=== PATIENT | female | born 1945 | race Caucasian/White ===

== ENCOUNTER 2020-11-20 18:38 | Emergency (ER) | payer MEDICARE ==
[~2020-11-20] VITALS: Ht 165.1 cm; Wt 75.4 kg
[~2020-11-20 18:38] MED LIST: WARF-23 PO
[2020-11-20] MEDS ORDERED: LISI40TA4 (18:54)
--- NOTE | 2020-11-20 20:08 | REP ---
INDICATION: fall/pain. COMPARISON: None TECHNIQUE: Four views FINDINGS: There is no acute fracture, dislocation, subluxation, or joint effusion. There is radial head marginal osteophytosis and joint space narrowing consistent with degenerative changes. IMPRESSION: . Chronic changes <Electronically signed by Viktor Cain > 11/20/202003
--- NOTE | 2020-11-20 20:12 | REP ---
INDICATION: fall/pain. COMPARISON: The frontal view the chest is compared to the portable exam 09/08/2014 TECHNIQUE: Five views FINDINGS: The bones are demineralized to such a degree that a fracture cannot be ruled. The 7th rib might be fractured. Accompanying frontal view of the chest shows chronic fibrotic changes, global cardiomegaly, previous median sternotomy, and a single chamber bipolar pacemaker device. IMPRESSION: Possible rib fracture as described above. Other findings as described above. Consider CT <Electronically signed by Viktor Cain > 11/20/202008
--- NOTE | 2020-11-20 20:13 | REP ---
INDICATION: fall/pain. COMPARISON: None. TECHNIQUE: Three views of the right shoulder were performed. FINDINGS: The acromioclavicular and glenohumeral relationships are within normal limits. There is no acute fracture or destructive osseous lesion. IMPRESSION: Within normal limits for age <Electronically signed by Viktor Cain > 11/20/202008
[2020-11-20 21:01] VITALS: BP 188/87
== END 2020-11-20 21:13 | disposition home or self-care (01) ==
LOC: M ED 18:38
DX: S22.31XA Fracture of one rib, right side, initial encounter for closed fracture (principal); M25.511 Pain in right shoulder; W01.0XXA Fall on same level from slipping, tripping and stumbling without subsequent striking against object, initial encounter; Y92.9 Unspecified place or not applicable; Y93.9 Activity, unspecified; Y99.9 Unspecified external cause status; Z95.0 Presence of cardiac pacemaker; Z88.1 Allergy status to other antibiotic agents; Z88.6 Allergy status to analgesic agent; Z88.8 Allergy status to other drugs, medicaments and biological substances

== ENCOUNTER → 2020-12-25 | Outpatient (CLI) | payer MEDICARE ==
[~2020-12-25] MED LIST changes: +LISI40TA4
--- NOTE | 2020-12-25 16:55 | REP ---
INDICATION: SPONDYLOSIS CERVICAL REGION / RT ELBOW PAIN ? FX. COMPARISON: Previous plain film examination 11/20/2020 reviewed. That examination showed no evidence of an acute fracture. Degenerative changes were noted. TECHNIQUE: 2 mm increments and reconstructed in both sagittal and coronal planes FINDINGS: There is a transverse supracondylar distal humeral fracture. It is nondisplaced. The elbow joint is intact. Degenerative changes are seen with marginal osteophyte formation involving the ulna and radial head. IMPRESSION: Transverse nondisplaced supracondylar fracture of the distal humerus as described above <Electronically signed by Viktor Cain > 12/25/20 [id number]
--- NOTE | 2020-12-25 17:35 | REPVR ---
PROCEDURE INFORMATION: Exam: CT Cervical Spine Without Contrast Exam date and time: 12/25/2020 4:35 PM Age: 75 years old Clinical indication: Other: Spondylosis; Additional info: Spondylosis cervical region / RT elbow pain ? FX TECHNIQUE: Imaging protocol: Computed tomography images of the cervical spine without contrast. Axial, coronal and sagittal reformatted images were created and reviewed. Radiation optimization: All CT scans at this facility use at least one of these dose optimization techniques: automated exposure control; mA and/or kV adjustment per patient size (includes targeted exams where dose is matched to clinical indication); or iterative reconstruction. COMPARISON: CT ANGIO CHEST 09/09/2014 2:00 AM FINDINGS: Bones/joints: Osteopenia. Mild reversal of the normal cervical lordosis. No CT evidence of acute fracture, dislocation or subluxation. Minimal anterolisthesis of C2 on C3 and C3 on C4. Mild retrolisthesis of C4 on C5. Alignment otherwise anatomic. Mild levoscoliosis. Vertebral body heights maintained. Discs/Spinal canal/Neural foramina: Mild multilevel degenerative changes, characterized by disc space narrowing, osteophytosis and uncovertebral and facet joint hypertrophy. Mild multilevel spinal canal and neural foraminal narrowing. Lungs: Grossly unremarkable. Soft tissues: Grossly unremarkable. IMPRESSION: 1. No CT evidence of acute cervical spine traumatic injury. 2. Additional findings, as above. Electronically signed by: Anastacio Ulloa On 12/25/2020 17:34:48 PM
== END ==
LOC: M RAD 16:26
PROVIDERS: ATTEND Physician Assistant
DX: S42.214A Unspecified nondisplaced fracture of surgical neck of right humerus, initial encounter for closed fracture (principal); M47.892 Other spondylosis, cervical region; M85.88 Other specified disorders of bone density and structure, other site; X58.XXXA Exposure to other specified factors, initial encounter; Y92.9 Unspecified place or not applicable; Y99.9 Unspecified external cause status

== ENCOUNTER → 2022-08-14 | Outpatient (CLI) | payer MEDICARE ==
[2022-08-14 10:16] LABS: HEMATOCRIT 38.2 % (36.0-47.0); HEMOGLOBIN 12.6 g/dl (12.0-15.5); MEAN CORPUSCULAR HEMOGLOBIN 28.7 pg (27.0-33.0); PLATELET COUNT, AUTOMATED 158 10^3/uL (150-450); RED BLOOD COUNT 4.39 10^6/uL (4.00-5.40); WHITE BLOOD COUNT 4.4 10^3/uL (4.0-10.0)
[2022-08-14 11:00] LABS: ALBUMIN 3.8 G/DL (3.2-5.2); ALKALINE PHOSPHATASE 94 U/L (46-116); ALT/SGPT 17 U/L (7.0-40); AST/SGOT 22 U/L (<34); BILIRUBIN,TOTAL 3.2 MG/DL (0.3-1.2); BLOOD UREA NITROGEN 19 MG/DL (9-23); CALCIUM LEVEL 8.8 MG/DL (8.3-10.6); CARBON DIOXIDE LEVEL 27 MMOL/L (20-31); CHLORIDE LEVEL 102 MMOL/L (98-107); CHOLESTEROL LEVEL 177 MG/DL (<200); CHOLESTEROL RISK RATIO 3.25 (<5); CREATININE FOR GFR 0.78 MG/DL (0.55-1.30); GLOMERULAR FILTRATION RATE > 60.0 (>39); GLUCOSE, FASTING 100 MG/DL (74-106); HDL CHOLESTEROL 54.3 MG/DL (>40); LDL CHOLESTEROL 107.1 MG/DL (<100); MAGNESIUM LEVEL 1.9 MG/DL (1.8-2.4); NON-HDL-C 123 MG/DL; POTASSIUM SERUM 4.2 MMOL/L (3.5-5.1); SODIUM LEVEL 137 MMOL/L (136-145); TOTAL PROTEIN 7.2 G/DL (5.7-8.2); TRIGLYCERIDES LEVEL 78 MG/DL (<150)
== END ==
LOC: M LAB 09:22
PROVIDERS: ATTEND Physician Assistant
DX: I50.42 Chronic combined systolic (congestive) and diastolic (congestive) heart failure (principal); I48.21 Permanent atrial fibrillation; Z13.220 Encounter for screening for lipoid disorders

== ENCOUNTER 2023-08-14 17:04 | Inpatient (IN) | payer MEDICARE ==
[~2023-08-14] VITALS: Ht 165.1 cm; Wt 71.0 kg
[2023-08-14] VITALS (17 sets, daily range): BP systolic 110–149; BP diastolic 51–70; TEMP 95.9–97; O2SAT 95–100
[~2023-08-14 17:04] MED LIST changes: -LISI40TA4; +LISI40TA4 PO
[2023-08-14] MEDS ORDERED: MIDAZOLAM 5MG/ML 1ML VIAL As Ordered ONE (17:07)
[2023-08-14] MEDS ORDERED: NOREPINEPHRINE 4MG IN D5 250ML 4 MG in IV 1 EA IV SCH ×2 (17:10→19:25)
[2023-08-14] MEDS: MIDAZOLAM INJ 2MG/2ML VIAL IV ONE (17:15)
[2023-08-14 17:26] LABS: ABG BASE EXCESS -6.1 (-2.0-2.0); ABG HCO3 19.8 MMOL/L (22.0-26.0); ABG O2 SATURATION 95.8 % (95.0-99.0); ABG PARTIAL PRESSURE CO2 40.5 mmHg (35.0-45.0); ABG PARTIAL PRESSURE O2 88.7 mmHg (75.0-100.0); ABG STANDARD HCO3 19.5 MMOL/L. (22.0-26.0); ABG pH (ARTERIAL) 7.307 UNITS (7.350-7.450)
[2023-08-14] MEDS: AMIODARONE HCL 360 MG in IV 1 EA IV SCH ×2 (17:35→22:34)
[2023-08-14] MEDS: HYDROCORTISONE 100MG/2ML VIAL IV ONE (17:35)
[2023-08-14 17:41] LABS: BASO # 0.1 10^3/uL (0.0-0.2); BASO % 0.3 % (0.0-1.0); EOS % 0.2 % (0.0-3.0); HEMATOCRIT 37.2 % (36.0-47.0); HEMOGLOBIN 12.4 g/dl (12.0-15.5); LYMPH # 3.2 10^3/uL (1.5-5.0); LYMPH % 17.7 % (24.0-44.0); MEAN CORPUSCULAR HEMOGLOBIN 28.9 pg (27.0-33.0); MEAN CORPUSCULAR HGB CONC 33.3 g/dl (32.0-36.5); MEAN CORPUSCULAR VOLUME 86.7 fl (80.0-96.0); MONO # 0.6 10^3/uL (0.0-0.8); MONO % 3.2 % (2.0-8.0); NEUTROPHILS # 13.9 10^3/uL (1.5-8.5); NEUTROPHILS % 76.2 % (36.0-66.0); PLATELET COUNT, AUTOMATED 163 10^3/uL (150-450); RED BLOOD COUNT 4.29 10^6/uL (4.00-5.40); WHITE BLOOD COUNT 18.2 10^3/uL (4.0-10.0)
[2023-08-14 17:54] LABS: INR 1.42; PROTHROMBIN TIME 16.9 SECONDS (12.5-14.5)
[2023-08-14] MEDS ORDERED: BUME0.5T2 PO (17:54)
[2023-08-14] MEDS ORDERED: ELIQ5TAB PO (17:54)
[2023-08-14 17:55] LABS: PARTIAL THROMBOPLASTIN TIME 33.8 SECONDS (24.8-34.2)
[2023-08-14] MEDS ORDERED: HOME MED LIST COMPLETE! XX SCH (17:55)
[2023-08-14] MEDS: MIDAZOLAM 100MG/100ML-0.9%NACL 100 MG in IV 1 EA IV SCH ×2 (17:57→21:15)
[2023-08-14] MEDS: NS 1,000 ML IV ONE ×2 (17:59→19:18)
[2023-08-14 18:08] LABS: CK-MB VALUE MASS < 1.0 NG/ML (<3.6)
[2023-08-14 18:10] LABS: AMYLASE 53 U/L (30-118)
[2023-08-14 18:11] LABS: RSV AMPLIFICATION NEGATIVE (NEGATIVE)
[2023-08-14 18:12] LABS: THYROID STIMULATING HORMONE 4.805 uIU/ML (0.55-4.78)
[2023-08-14] MEDS: CEFEPIME HCL 1 GM in D5W MINI-BAG PLUS 50 ML IV ONE (18:12)
[2023-08-14 18:13] LABS: FREE T4 0.84 NG/DL (0.89-1.76)
[2023-08-14 18:16] LABS: PROCALCITONIN <0.04 ng/ml
[2023-08-14] MEDS: levETIRAcetam INJection 1,000 MG in D5W 100 ML IV ONE (18:24)
[2023-08-14 18:26] LABS: ALBUMIN 2.8 G/DL (3.2-5.2); ALKALINE PHOSPHATASE 88 U/L (46-116); ALT/SGPT 130 U/L (7.0-40); AST/SGOT 147 U/L (<34); BILIRUBIN,DIRECT 0.6 MG/DL (<0.4); BILIRUBIN,TOTAL 1.5 MG/DL (0.3-1.2); BLOOD UREA NITROGEN 15 MG/DL (9-23); CALCIUM LEVEL 7.4 MG/DL (8.3-10.6); CARBON DIOXIDE LEVEL 22 MMOL/L (20-31); CHLORIDE LEVEL 104 MMOL/L (98-107); CPK CREATINE PHOSPHOKINASE 96 U/L (34-145); CREATININE FOR GFR 0.74 MG/DL (0.55-1.30); GLOMERULAR FILTRATION RATE > 60.0 (>39); GLUCOSE, FASTING 288 MG/DL (74-106); MB/CK RELATIVE INDEX 1.04 (< OR =4); POTASSIUM SERUM 2.8 MMOL/L (3.5-5.1); SODIUM LEVEL 140 MMOL/L (136-145); TOTAL PROTEIN 6.2 G/DL (5.7-8.2)
[2023-08-14 18:38] LABS: LIPASE 40 U/L (12-53)
[2023-08-14 18:40] LABS: MAGNESIUM LEVEL 1.7 MG/DL (1.8-2.4); PHOSPHORUS LEVEL 5.3 MG/DL (2.4-5.1)
[2023-08-14] MEDS ORDERED: OSELTAMIVIR 6 MG/ML SUSP PO ONE (18:45)
[2023-08-14 18:49] LABS: AMORPHOUS SEDIMENT SMALL (NEGATIVE); APPEARANCE, URINE CLOUDY (CLEAR); BACTERIA, URINE AUTO NEGATIVE (NEGATIVE); BILIRUBIN, URINE AUTO NEGATIVE (NEGATIVE); BLOOD, URINE BLOOD 1+ (NEGATIVE); COLOR, URINE YELLOW (YELLOW); GLUCOSE, URINE (UA) AUTO 3+ mg/dL (NEGATIVE); GRANULAR CAST, URINE AUTO 2 /LPF; KETONE, URINE AUTO NEGATIVE (NEGATIVE); LEUKOCYTE ESTERASE, URINE AUTO NEGATIVE (NEGATIVE); MUCUS, URINE SMALL (NEGATIVE); NITRITE, URINE AUTO NEGATIVE (NEGATIVE); PROTEIN, URINE AUTO 3+ mg/dL (NEGATIVE); RBC, URINE AUTO 10 /HPF (0-3); SPECIFIC GRAVITY URINE AUTO 1.014 (1.002-1.035); SQUAMOUS EPITHELIAL CELL UR AU 3 /HPF (0-6); UROBILINOGEN, URINE AUTO 0.2 mg/dL (0.0-2.0); WBC, URINE AUTO 0 /HPF (0-3)
[2023-08-14] MEDS: MAG SULF 1GM/100ML (MAG RUN) 1 GM in IV 1 EA IV ONE (18:57)
[2023-08-14] MEDS: CALCIUM GLUCONATE 1,000 MG in D5W MINI-BAG PLUS 100 ML IV ONE (18:57)
[2023-08-14] MEDS: VANCOMYCIN HCL 1,000 MG, VIAL MATE ADAPTER 1 EACH in D5W 250 ML IV ONE (18:57)
[2023-08-14 19:08] LABS: AMPHETAMINES LEVEL URINE NEGATIVE (NEGATIVE)
[2023-08-14 19:09] LABS: BARBITURATES URINE NEGATIVE (NEGATIVE); CANNABINOIDS URINE NEGATIVE (NEGATIVE); COCAINE METABOLITE URINE NEGATIVE (NEGATIVE); METHADONE URINE NEGATIVE (NEGATIVE); OPIATES URINE NEGATIVE (NEGATIVE); PHENCYCLIDINE URINE NEGATIVE (NEGATIVE)
[2023-08-14 19:11] LABS: BENZODIAZEPINES URINE POSITIVE (NEGATIVE)
[2023-08-14] MEDS: KCL 20MEQ IN 100ML SWI (KRUN) 20 MEQ in IV 1 EA IV SCH (19:18)
[2023-08-14] MEDS ORDERED: DEXTROSE 50% 50ML SYRINGE IV PRN (19:25)
[2023-08-14] MEDS ORDERED: GLUCOSE 4GM CHEW TABLET PO PRN (19:25)
[2023-08-14] MEDS ORDERED: GLUCAGON INJ 1MG VIAL SC PRN (19:25)
[2023-08-14] MEDS: ACETAMINOPHEN 650MG SUPP PR ONE (19:25)
[2023-08-14 19:29] LABS: MB/CK RELATIVE INDEX 2.73 (< OR =4)
[2023-08-14] MEDS ORDERED: VANCOMYCIN HCL 1,000 MG, VIAL MATE ADAPTER 1 EACH in D5W 250 ML IV SCH (19:40)
[2023-08-14 19:56] LABS: ABG BASE EXCESS -2.5 (-2.0-2.0); ABG HCO3 21.8 MMOL/L (22.0-26.0); ABG O2 SATURATION 98.9 % (95.0-99.0); ABG PARTIAL PRESSURE CO2 35.9 mmHg (35.0-45.0); ABG PARTIAL PRESSURE O2 177.9 mmHg (75.0-100.0); ABG STANDARD HCO3 22.4 MMOL/L. (22.0-26.0); ABG TOTAL CO2 22.9 MMOL/L (23.0-31.0); ABG pH (ARTERIAL) 7.402 UNITS (7.350-7.450)
[2023-08-14] MEDS: LACRILUBE (AKWA TEARS) OPHTH OINT 3.5GM OU SCH (21:00)
[2023-08-14] MEDS: NS 1,000 ML IV SCH (21:18)
[2023-08-14 21:23] LABS: ABG BASE EXCESS -0.9 (-2.0-2.0); ABG HCO3 24.1 MMOL/L (22.0-26.0); ABG O2 SATURATION 98.7 % (95.0-99.0); ABG PARTIAL PRESSURE CO2 41.4 mmHg (35.0-45.0); ABG PARTIAL PRESSURE O2 133.4 mmHg (75.0-100.0); ABG STANDARD HCO3 23.7 MMOL/L. (22.0-26.0); ABG TOTAL CO2 25.4 MMOL/L (23.0-31.0); ABG pH (ARTERIAL) 7.383 UNITS (7.350-7.450)
[2023-08-14 21:26] LABS: BASO % 0.1 % (0.0-1.0); HEMATOCRIT 32.8 % (36.0-47.0); LYMPH # 0.4 10^3/uL (1.5-5.0); LYMPH % 2.6 % (24.0-44.0); MEAN CORPUSCULAR HEMOGLOBIN 28.9 pg (27.0-33.0); MEAN CORPUSCULAR HGB CONC 33.5 g/dl (32.0-36.5); MEAN CORPUSCULAR VOLUME 86.1 fl (80.0-96.0); MONO # 0.9 10^3/uL (0.0-0.8); MONO % 5.6 % (2.0-8.0); NEUTROPHILS # 13.8 10^3/uL (1.5-8.5); PLATELET COUNT, AUTOMATED 124 10^3/uL (150-450); RED BLOOD COUNT 3.81 10^6/uL (4.00-5.40); WHITE BLOOD COUNT 15.1 10^3/uL (4.0-10.0)
[2023-08-14 21:39] LABS: INR 1.47; PROTHROMBIN TIME 17.3 SECONDS (12.5-14.5)
[2023-08-14 21:40] LABS: PARTIAL THROMBOPLASTIN TIME 34.7 SECONDS (24.8-34.2)
[2023-08-14 21:44] LABS: LIPASE 32 U/L (12-53)
[2023-08-14 21:46] LABS: AMYLASE 40 U/L (30-118); CPK CREATINE PHOSPHOKINASE 188 U/L (34-145)
[2023-08-14 21:49] LABS: D-DIMER QUANT 13.68 ug/mL (<0.5)
[2023-08-14 21:52] LABS: ALBUMIN 2.5 G/DL (3.2-5.2); ALKALINE PHOSPHATASE 81 U/L (46-116); ALT/SGPT 113 U/L (7.0-40); AST/SGOT 137 U/L (<34); BILIRUBIN,TOTAL 1.8 MG/DL (0.3-1.2); BLOOD UREA NITROGEN 14 MG/DL (9-23); CALCIUM LEVEL 7.3 MG/DL (8.3-10.6); CARBON DIOXIDE LEVEL 26 MMOL/L (20-31); CHLORIDE LEVEL 102 MMOL/L (98-107); CK-MB VALUE MASS 8.1 NG/ML (<3.6); GLOMERULAR FILTRATION RATE > 60.0 (>39); GLUCOSE, FASTING 372 MG/DL (74-106); MAGNESIUM LEVEL 1.8 MG/DL (1.8-2.4); PHOSPHORUS LEVEL 2.2 MG/DL (2.4-5.1); POTASSIUM SERUM 2.9 MMOL/L (3.5-5.1); SODIUM LEVEL 134 MMOL/L (136-145); TOTAL PROTEIN 5.6 G/DL (5.7-8.2)
[2023-08-14] MEDS: KCL 10MEQ/100ML SWI (KRUN) 10 MEQ in IV 1 EA IV SCH (22:41)
[2023-08-14] MEDS ORDERED: ACETAMINOPHEN 650MG SUPP PR PRN (23:00)
[2023-08-14] MEDS ORDERED: AMIODARONE HCL 360 MG in IV 1 EA IV SCH (23:00)
[2023-08-15] VITALS (57 sets, daily range): BP systolic 93–173; BP diastolic 53–85; TEMP 91.8–98.4; O2SAT 91–100
[2023-08-15] MEDS ORDERED: diphenhydrAMINE 25MG CAP PO SCH
[2023-08-15] MEDS: FAMOTIDINE IV BAG 20 MG in IV 1 EA IV SCH (00:13)
[2023-08-15] MEDS: POTASSIUM PHOSPHATE INJ 15 MMOL in D5W 250 ML IV ONE (00:13)
[2023-08-15] MEDS: OSELTAMIVIR 6 MG/ML SUSP PO SCH (00:13)
[2023-08-15] MEDS: methylPREDNISolone 125MG 2ML VIAL IV ONE (00:13)
[2023-08-15] MEDS: AMIODARONE HCL 360 MG in IV 1 EA IV SCH ×2 (00:21→19:50)
[2023-08-15] MEDS: INSULIN LISPRO (NovoLOG) PER UNIT SC SCH (00:22)
[2023-08-15] MEDS: diphenhydrAMINE 50MG/ML VIAL IV PRN (00:22)
[2023-08-15 00:32] LABS: HEMATOCRIT 34.5 % (36.0-47.0); HEMOGLOBIN 11.6 g/dl (12.0-15.5); MEAN CORPUSCULAR HEMOGLOBIN 28.8 pg (27.0-33.0); MEAN CORPUSCULAR HGB CONC 33.6 g/dl (32.0-36.5); MEAN CORPUSCULAR VOLUME 85.6 fl (80.0-96.0); PLATELET COUNT, AUTOMATED 136 10^3/uL (150-450); RED BLOOD COUNT 4.03 10^6/uL (4.00-5.40); WHITE BLOOD COUNT 15.5 10^3/uL (4.0-10.0)
[2023-08-15 00:42] LABS: INR 1.37; PROTHROMBIN TIME 16.5 SECONDS (12.5-14.5)
[2023-08-15 00:43] LABS: PARTIAL THROMBOPLASTIN TIME 35.4 SECONDS (24.8-34.2)
[2023-08-15] MEDS: CISATRACURIUM 200 MG in NS 480 ML IV SCH (00:49)
[2023-08-15 00:54] LABS: ALBUMIN 2.7 G/DL (3.2-5.2); ALKALINE PHOSPHATASE 82 U/L (46-116); ALT/SGPT 118 U/L (7.0-40); AST/SGOT 136 U/L (<34); BILIRUBIN,TOTAL 1.8 MG/DL (0.3-1.2); BLOOD UREA NITROGEN 15 MG/DL (9-23); CALCIUM LEVEL 7.5 MG/DL (8.3-10.6); CARBON DIOXIDE LEVEL 24 MMOL/L (20-31); CHLORIDE LEVEL 105 MMOL/L (98-107); CREATININE FOR GFR 0.69 MG/DL (0.55-1.30); GLOMERULAR FILTRATION RATE > 60.0 (>39); GLUCOSE, FASTING 319 MG/DL (74-106); MAGNESIUM LEVEL 1.8 MG/DL (1.8-2.4); PHOSPHORUS LEVEL 1.9 MG/DL (2.4-5.1); POTASSIUM SERUM 3.3 MMOL/L (3.5-5.1); SODIUM LEVEL 136 MMOL/L (136-145); TOTAL PROTEIN 5.9 G/DL (5.7-8.2)
[2023-08-15] MEDS: CISATRACURIUM 10MG/ML 20 ML VIAL IV ONE (01:11)
[2023-08-15] MEDS: VANCOMYCIN HCL 500 MG in D5W MINI-BAG PLUS 100 ML IV ONE (01:30)
[2023-08-15 01:36] LABS: ABG pH (ARTERIAL) 7.369 UNITS (7.350-7.450)
[2023-08-15 01:37] LABS: ABG BASE EXCESS -3.2 (-2.0-2.0); ABG HCO3 21.7 MMOL/L (22.0-26.0); ABG O2 SATURATION 98.9 % (95.0-99.0); ABG PARTIAL PRESSURE CO2 38.5 mmHg (35.0-45.0); ABG PARTIAL PRESSURE O2 136.8 mmHg (75.0-100.0); ABG STANDARD HCO3 21.9 MMOL/L. (22.0-26.0); ABG TOTAL CO2 22.9 MMOL/L (23.0-31.0)
[2023-08-15] MEDS ORDERED: dexmedeTOMidine 200 MCG in IV 1 EA IV SCH (01:50)
[2023-08-15] MEDS: ASPIRIN 300 MG SUPP PR SCH (01:53)
[2023-08-15 04:25] LABS: HEMATOCRIT 39.4 % (36.0-47.0); HEMOGLOBIN 13.1 g/dl (12.0-15.5); MEAN CORPUSCULAR HEMOGLOBIN 28.7 pg (27.0-33.0); MEAN CORPUSCULAR HGB CONC 33.2 g/dl (32.0-36.5); MEAN CORPUSCULAR VOLUME 86.4 fl (80.0-96.0); PLATELET COUNT, AUTOMATED 184 10^3/uL (150-450); RED BLOOD COUNT 4.56 10^6/uL (4.00-5.40); WHITE BLOOD COUNT 18.4 10^3/uL (4.0-10.0)
[2023-08-15 04:37] LABS: INR 1.36; PROTHROMBIN TIME 16.4 SECONDS (12.5-14.5)
[2023-08-15 04:38] LABS: PARTIAL THROMBOPLASTIN TIME 34.5 SECONDS (24.8-34.2)
[2023-08-15 04:51] LABS: ALBUMIN 2.6 G/DL (3.2-5.2); ALKALINE PHOSPHATASE 83 U/L (46-116); ALT/SGPT 114 U/L (7.0-40); AST/SGOT 114 U/L (<34); BILIRUBIN,TOTAL 1.8 MG/DL (0.3-1.2); BLOOD UREA NITROGEN 15 MG/DL (9-23); CALCIUM LEVEL 7.2 MG/DL (8.3-10.6); CARBON DIOXIDE LEVEL 22 MMOL/L (20-31); CHLORIDE LEVEL 104 MMOL/L (98-107); CREATININE FOR GFR 0.65 MG/DL (0.55-1.30); GLOMERULAR FILTRATION RATE > 60.0 (>39); GLUCOSE, FASTING 373 MG/DL (74-106); MAGNESIUM LEVEL 1.8 MG/DL (1.8-2.4); POTASSIUM SERUM 3.8 MMOL/L (3.5-5.1); SODIUM LEVEL 133 MMOL/L (136-145)
[2023-08-15] MEDS: CEFEPIME HCL 2 GM in D5W MINI-BAG PLUS 50 ML IV SCH ×2 (05:31→13:00)
[2023-08-15] MEDS: methylPREDNISolone 40MG 1ML VIAL IV SCH (05:32)
[2023-08-15 05:52] LABS: ABG BASE EXCESS -5.7 (-2.0-2.0); ABG HCO3 18.7 MMOL/L (22.0-26.0); ABG O2 SATURATION 98.8 % (95.0-99.0); ABG PARTIAL PRESSURE CO2 33.5 mmHg (35.0-45.0); ABG STANDARD HCO3 19.8 MMOL/L. (22.0-26.0); ABG TOTAL CO2 19.7 MMOL/L (23.0-31.0); ABG pH (ARTERIAL) 7.364 UNITS (7.350-7.450)
[2023-08-15 08:44] LABS: HEMATOCRIT 40.9 % (36.0-47.0); HEMOGLOBIN 13.7 g/dl (12.0-15.5); MEAN CORPUSCULAR HEMOGLOBIN 28.7 pg (27.0-33.0); MEAN CORPUSCULAR HGB CONC 33.5 g/dl (32.0-36.5); MEAN CORPUSCULAR VOLUME 85.7 fl (80.0-96.0); PLATELET COUNT, AUTOMATED 197 10^3/uL (150-450); RED BLOOD COUNT 4.77 10^6/uL (4.00-5.40); WHITE BLOOD COUNT 17.2 10^3/uL (4.0-10.0)
[2023-08-15] MEDS ORDERED: OSELTAMIVIR 6 MG/ML SUSP PO SCH (09:00)
[2023-08-15 09:02] LABS: ALBUMIN 2.9 G/DL (3.2-5.2); ALKALINE PHOSPHATASE 82 U/L (46-116); ALT/SGPT 108 U/L (7.0-40); AST/SGOT 94 U/L (<34); BILIRUBIN,TOTAL 1.3 MG/DL (0.3-1.2); BLOOD UREA NITROGEN 13 MG/DL (9-23); CALCIUM LEVEL 7.6 MG/DL (8.3-10.6); CARBON DIOXIDE LEVEL 22 MMOL/L (20-31); CHLORIDE LEVEL 105 MMOL/L (98-107); GLOMERULAR FILTRATION RATE > 60.0 (>39); GLUCOSE, FASTING 270 MG/DL (74-106); MAGNESIUM LEVEL 1.8 MG/DL (1.8-2.4); PHOSPHORUS LEVEL 2.8 MG/DL (2.4-5.1); POTASSIUM SERUM 3.5 MMOL/L (3.5-5.1); SODIUM LEVEL 134 MMOL/L (136-145); TOTAL PROTEIN 6.6 G/DL (5.7-8.2)
[2023-08-15 09:12] LABS: INR 1.31; PARTIAL THROMBOPLASTIN TIME 32.4 SECONDS (24.8-34.2); PROTHROMBIN TIME 15.9 SECONDS (12.5-14.5)
[2023-08-15] MEDS: NS 1,000 ML IV SCH (09:23)
[2023-08-15] MEDS: PANTOPRAZOLE 40MG VIAL IV SCH (09:23)
[2023-08-15] MEDS: levETIRAcetam INJection 1,000 MG in D5W 100 ML IV SCH (09:24)
[2023-08-15] MEDS: VANCOMYCIN HCL 750 MG, VIAL MATE ADAPTER 1 EACH in D5W 250 ML IV SCH (09:31)
[2023-08-15 10:39] LABS: ABG BASE EXCESS -7.6 (-2.0-2.0); ABG HCO3 17.8 MMOL/L (22.0-26.0); ABG O2 SATURATION 99.4 % (95.0-99.0); ABG PARTIAL PRESSURE CO2 35.9 mmHg (35.0-45.0); ABG PARTIAL PRESSURE O2 173.4 mmHg (75.0-100.0); ABG STANDARD HCO3 18.4 MMOL/L. (22.0-26.0); ABG TOTAL CO2 18.9 MMOL/L (23.0-31.0); ABG pH (ARTERIAL) 7.312 UNITS (7.350-7.450)
[2023-08-15 12:06] LABS: HEMATOCRIT 37.3 % (36.0-47.0); HEMOGLOBIN 12.6 g/dl (12.0-15.5); MEAN CORPUSCULAR HEMOGLOBIN 28.8 pg (27.0-33.0); MEAN CORPUSCULAR HGB CONC 33.8 g/dl (32.0-36.5); MEAN CORPUSCULAR VOLUME 85.4 fl (80.0-96.0); PLATELET COUNT, AUTOMATED 147 10^3/uL (150-450); RED BLOOD COUNT 4.37 10^6/uL (4.00-5.40); WHITE BLOOD COUNT 10.8 10^3/uL (4.0-10.0)
[2023-08-15 12:27] LABS: INR 1.38; PROTHROMBIN TIME 16.5 SECONDS (12.5-14.5)
[2023-08-15 12:28] LABS: PARTIAL THROMBOPLASTIN TIME 33.2 SECONDS (24.8-34.2)
[2023-08-15 12:44] LABS: ALBUMIN 2.6 G/DL (3.2-5.2); ALKALINE PHOSPHATASE 75 U/L (46-116); ALT/SGPT 94 U/L (7.0-40); AST/SGOT 74 U/L (<34); BILIRUBIN,TOTAL 1.2 MG/DL (0.3-1.2); BLOOD UREA NITROGEN 13 MG/DL (9-23); CALCIUM LEVEL 7.3 MG/DL (8.3-10.6); CARBON DIOXIDE LEVEL 22 MMOL/L (20-31); CHLORIDE LEVEL 105 MMOL/L (98-107); GLOMERULAR FILTRATION RATE > 60.0 (>39); GLUCOSE, FASTING 298 MG/DL (74-106); MAGNESIUM LEVEL 1.7 MG/DL (1.8-2.4); PHOSPHORUS LEVEL 3.1 MG/DL (2.4-5.1); POTASSIUM SERUM 3.3 MMOL/L (3.5-5.1); SODIUM LEVEL 133 MMOL/L (136-145)
[2023-08-15] MEDS: POTASSIUM CHLORIDE 10MEQ SR TABLET PO ONE (13:40)
[2023-08-15] MEDS: MAG SULF 1GM/100ML (MAG RUN) 1 GM in IV 1 EA IV ONE (13:57)
[2023-08-15] MEDS: APIXABAN 5 MG TAB (ELIQUIS) PO SCH (14:12)
[2023-08-15] MEDS ORDERED: MIDAZOLAM INJ 2MG/2ML VIAL As Ordered ONE (14:46)
[2023-08-15] MEDS: KCL 20MEQ IN 100ML SWI (KRUN) 20 MEQ in IV 1 EA IV ONE (14:50)
[2023-08-15 14:58] LABS: ABG HCO3 16.5 MMOL/L (22.0-26.0); ABG TOTAL CO2 17.3 MMOL/L (23.0-31.0)
[2023-08-15 15:00] LABS: ABG BASE EXCESS -6.1 (-2.0-2.0); ABG O2 SATURATION 99.2 % (95.0-99.0); ABG PARTIAL PRESSURE CO2 25.6 mmHg (35.0-45.0); ABG PARTIAL PRESSURE O2 148.1 mmHg (75.0-100.0); ABG STANDARD HCO3 19.5 MMOL/L. (22.0-26.0); ABG pH (ARTERIAL) 7.426 UNITS (7.350-7.450)
[2023-08-15] MEDS: MIDAZOLAM INJ 2MG/2ML VIAL IV STA (15:01)
[2023-08-15 16:36] LABS: HEMATOCRIT 42.4 % (36.0-47.0); HEMOGLOBIN 14.1 g/dl (12.0-15.5); MEAN CORPUSCULAR HEMOGLOBIN 28.6 pg (27.0-33.0); MEAN CORPUSCULAR HGB CONC 33.3 g/dl (32.0-36.5); PLATELET COUNT, AUTOMATED 226 10^3/uL (150-450); RED BLOOD COUNT 4.93 10^6/uL (4.00-5.40); WHITE BLOOD COUNT 18.3 10^3/uL (4.0-10.0)
[2023-08-15 16:47] LABS: INR 1.72; PROTHROMBIN TIME 19.5 SECONDS (12.5-14.5)
[2023-08-15] MEDS ORDERED: propofoL 1,000 MG in IV 1 EA IV SCH (16:50)
[2023-08-15 17:03] LABS: ALBUMIN 2.8 G/DL (3.2-5.2); ALKALINE PHOSPHATASE 81 U/L (46-116); ALT/SGPT 95 U/L (7.0-40); AST/SGOT 72 U/L (<34); BILIRUBIN,TOTAL 1.3 MG/DL (0.3-1.2); BLOOD UREA NITROGEN 12 MG/DL (9-23); CARBON DIOXIDE LEVEL 19 MMOL/L (20-31); CHLORIDE LEVEL 104 MMOL/L (98-107); CREATININE FOR GFR 0.54 MG/DL (0.55-1.30); GLOMERULAR FILTRATION RATE > 60.0 (>39); GLUCOSE, FASTING 238 MG/DL (74-106); MAGNESIUM LEVEL 2.2 MG/DL (1.8-2.4); PHOSPHORUS LEVEL 2.6 MG/DL (2.4-5.1); POTASSIUM SERUM 4.7 MMOL/L (3.5-5.1); SODIUM LEVEL 130 MMOL/L (136-145); TOTAL PROTEIN 6.5 G/DL (5.7-8.2)
[2023-08-15 18:31] LABS: ABG BASE EXCESS -7.1 (-2.0-2.0); ABG HCO3 16.5 MMOL/L (22.0-26.0); ABG O2 SATURATION 98.5 % (95.0-99.0); ABG PARTIAL PRESSURE CO2 28.5 mmHg (35.0-45.0); ABG PARTIAL PRESSURE O2 136.4 mmHg (75.0-100.0); ABG STANDARD HCO3 18.7 MMOL/L. (22.0-26.0); ABG TOTAL CO2 17.4 MMOL/L (23.0-31.0); ABG pH (ARTERIAL) 7.381 UNITS (7.350-7.450)
[2023-08-15 20:18] LABS: HEMOGLOBIN 11.7 g/dl (12.0-15.5); MEAN CORPUSCULAR HEMOGLOBIN 28.9 pg (27.0-33.0); MEAN CORPUSCULAR HGB CONC 34.4 g/dl (32.0-36.5); PLATELET COUNT, AUTOMATED 155 10^3/uL (150-450); RED BLOOD COUNT 4.05 10^6/uL (4.00-5.40); WHITE BLOOD COUNT 12.7 10^3/uL (4.0-10.0)
[2023-08-15 20:32] LABS: INR 1.61; PARTIAL THROMBOPLASTIN TIME 35.1 SECONDS (24.8-34.2); PROTHROMBIN TIME 18.6 SECONDS (12.5-14.5)
[2023-08-15 20:49] LABS: ALBUMIN 2.1 G/DL (3.2-5.2); ALKALINE PHOSPHATASE 68 U/L (46-116); ALT/SGPT 84 U/L (7.0-40); AST/SGOT 56 U/L (<34); BILIRUBIN,TOTAL 1.1 MG/DL (0.3-1.2); BLOOD UREA NITROGEN 16 MG/DL (9-23); CALCIUM LEVEL 7.4 MG/DL (8.3-10.6); CARBON DIOXIDE LEVEL 22 MMOL/L (20-31); CHLORIDE LEVEL 106 MMOL/L (98-107); CREATININE FOR GFR 0.66 MG/DL (0.55-1.30); GLOMERULAR FILTRATION RATE > 60.0 (>39); GLUCOSE, FASTING 179 MG/DL (74-106); MAGNESIUM LEVEL 1.8 MG/DL (1.8-2.4); PHOSPHORUS LEVEL 2.4 MG/DL (2.4-5.1); SODIUM LEVEL 133 MMOL/L (136-145); TOTAL PROTEIN 5.2 G/DL (5.7-8.2)
[2023-08-15 23:48] LABS: ABG BASE EXCESS -5.4 (-2.0-2.0); ABG PARTIAL PRESSURE CO2 25.2 mmHg (35.0-45.0); ABG PARTIAL PRESSURE O2 160.5 mmHg (75.0-100.0); ABG TOTAL CO2 17.8 MMOL/L (23.0-31.0); ABG pH (ARTERIAL) 7.447 UNITS (7.350-7.450)
[2023-08-16] VITALS (30 sets, daily range): BP systolic 92–147; BP diastolic 56–70; TEMP 98.2–99.7; O2SAT 94–100
[2023-08-16 00:03] LABS: INR 1.71; PROTHROMBIN TIME 19.5 SECONDS (12.5-14.5)
[2023-08-16 00:06] LABS: HEMATOCRIT 34.6 % (36.0-47.0); HEMOGLOBIN 11.7 g/dl (12.0-15.5); MEAN CORPUSCULAR HEMOGLOBIN 28.8 pg (27.0-33.0); MEAN CORPUSCULAR HGB CONC 33.8 g/dl (32.0-36.5); MEAN CORPUSCULAR VOLUME 85.2 fl (80.0-96.0); PLATELET COUNT, AUTOMATED 162 10^3/uL (150-450); RED BLOOD COUNT 4.06 10^6/uL (4.00-5.40); WHITE BLOOD COUNT 13.3 10^3/uL (4.0-10.0)
[2023-08-16 00:19] LABS: ALBUMIN 2.1 G/DL (3.2-5.2); ALKALINE PHOSPHATASE 66 U/L (46-116); ALT/SGPT 78 U/L (7.0-40); AST/SGOT 52 U/L (<34); BILIRUBIN,TOTAL 1.1 MG/DL (0.3-1.2); BLOOD UREA NITROGEN 16 MG/DL (9-23); CALCIUM LEVEL 7.2 MG/DL (8.3-10.6); CARBON DIOXIDE LEVEL 21 MMOL/L (20-31); CHLORIDE LEVEL 107 MMOL/L (98-107); CREATININE FOR GFR 0.65 MG/DL (0.55-1.30); GLOMERULAR FILTRATION RATE > 60.0 (>39); GLUCOSE, FASTING 141 MG/DL (74-106); MAGNESIUM LEVEL 1.7 MG/DL (1.8-2.4); PHOSPHORUS LEVEL 2.2 MG/DL (2.4-5.1); POTASSIUM SERUM 3.7 MMOL/L (3.5-5.1); SODIUM LEVEL 133 MMOL/L (136-145); TOTAL PROTEIN 5.2 G/DL (5.7-8.2)
[2023-08-16] MEDS: MAG SULF 1GM/100ML (MAG RUN) 1 GM in IV 1 EA IV SCH (00:45)
[2023-08-16 03:24] LABS: HEMATOCRIT 32.5 % (36.0-47.0); HEMOGLOBIN 11.2 g/dl (12.0-15.5); MEAN CORPUSCULAR HEMOGLOBIN 28.9 pg (27.0-33.0); MEAN CORPUSCULAR HGB CONC 34.5 g/dl (32.0-36.5); PLATELET COUNT, AUTOMATED 154 10^3/uL (150-450); RED BLOOD COUNT 3.87 10^6/uL (4.00-5.40); WHITE BLOOD COUNT 13.7 10^3/uL (4.0-10.0)
[2023-08-16 03:36] LABS: INR 1.76; PROTHROMBIN TIME 19.9 SECONDS (12.5-14.5)
[2023-08-16 03:37] LABS: PARTIAL THROMBOPLASTIN TIME 36.2 SECONDS (24.8-34.2)
[2023-08-16 03:46] LABS: ALBUMIN 2.2 G/DL (3.2-5.2); ALKALINE PHOSPHATASE 64 U/L (46-116); ALT/SGPT 68 U/L (7.0-40); AST/SGOT 48 U/L (<34); BLOOD UREA NITROGEN 14 MG/DL (9-23); CALCIUM LEVEL 7.5 MG/DL (8.3-10.6); CARBON DIOXIDE LEVEL 20 MMOL/L (20-31); CHLORIDE LEVEL 105 MMOL/L (98-107); CREATININE FOR GFR 0.69 MG/DL (0.55-1.30); GLOMERULAR FILTRATION RATE > 60.0 (>39); GLUCOSE, FASTING 130 MG/DL (74-106); MAGNESIUM LEVEL 2.5 MG/DL (1.8-2.4); PHOSPHORUS LEVEL 2.4 MG/DL (2.4-5.1); POTASSIUM SERUM 3.7 MMOL/L (3.5-5.1); SODIUM LEVEL 131 MMOL/L (136-145)
[2023-08-16 04:34] LABS: ABG pH (ARTERIAL) 7.442 UNITS (7.350-7.450)
[2023-08-16 04:35] LABS: ABG BASE EXCESS -4.9 (-2.0-2.0); ABG HCO3 17.9 MMOL/L (22.0-26.0); ABG O2 SATURATION 99.1 % (95.0-99.0); ABG PARTIAL PRESSURE CO2 26.8 mmHg (35.0-45.0); ABG PARTIAL PRESSURE O2 172.9 mmHg (75.0-100.0); ABG STANDARD HCO3 20.5 MMOL/L. (22.0-26.0); ABG TOTAL CO2 18.7 MMOL/L (23.0-31.0)
[2023-08-16 05:43] LABS: BASO % 0.1 % (0.0-1.0); HEMATOCRIT 32.7 % (36.0-47.0); HEMOGLOBIN 11.5 g/dl (12.0-15.5); LYMPH # 0.9 10^3/uL (1.5-5.0); LYMPH % 6.2 % (24.0-44.0); MEAN CORPUSCULAR HEMOGLOBIN 29.4 pg (27.0-33.0); MEAN CORPUSCULAR HGB CONC 35.2 g/dl (32.0-36.5); MEAN CORPUSCULAR VOLUME 83.6 fl (80.0-96.0); MONO # 0.5 10^3/uL (0.0-0.8); MONO % 3.4 % (2.0-8.0); NEUTROPHILS # 13.2 10^3/uL (1.5-8.5); NEUTROPHILS % 89.7 % (36.0-66.0); PLATELET COUNT, AUTOMATED 171 10^3/uL (150-450); RED BLOOD COUNT 3.91 10^6/uL (4.00-5.40); WHITE BLOOD COUNT 14.7 10^3/uL (4.0-10.0)
[2023-08-16 05:59] LABS: INR 1.66; PROTHROMBIN TIME 19.1 SECONDS (12.5-14.5)
[2023-08-16 06:13] LABS: CK-MB VALUE MASS 5.3 NG/ML (<3.6)
[2023-08-16 06:16] LABS: ALBUMIN 2.1 G/DL (3.2-5.2); ALKALINE PHOSPHATASE 65 U/L (46-116); ALT/SGPT 69 U/L (7.0-40); AST/SGOT 50 U/L (<34); BLOOD UREA NITROGEN 15 MG/DL (9-23); CALCIUM LEVEL 7.3 MG/DL (8.3-10.6); CARBON DIOXIDE LEVEL 20 MMOL/L (20-31); CHLORIDE LEVEL 107 MMOL/L (98-107); CREATININE FOR GFR 0.73 MG/DL (0.55-1.30); GLOMERULAR FILTRATION RATE > 60.0 (>39); GLUCOSE, FASTING 113 MG/DL (74-106); MAGNESIUM LEVEL 2.1 MG/DL (1.8-2.4); PHOSPHORUS LEVEL 2.7 MG/DL (2.4-5.1); SODIUM LEVEL 133 MMOL/L (136-145)
[2023-08-16 06:20] LABS: CPK CREATINE PHOSPHOKINASE 136 U/L (34-145); MB/CK RELATIVE INDEX 3.89 (< OR =4)
[2023-08-16 08:26] LABS: HEMOGLOBIN 11.6 g/dl (12.0-15.5); MEAN CORPUSCULAR HEMOGLOBIN 28.9 pg (27.0-33.0); MEAN CORPUSCULAR HGB CONC 34.1 g/dl (32.0-36.5); MEAN CORPUSCULAR VOLUME 84.8 fl (80.0-96.0); PLATELET COUNT, AUTOMATED 170 10^3/uL (150-450); RED BLOOD COUNT 4.01 10^6/uL (4.00-5.40); WHITE BLOOD COUNT 14.8 10^3/uL (4.0-10.0)
[2023-08-16 08:56] LABS: INR 1.71; PROTHROMBIN TIME 19.5 SECONDS (12.5-14.5)
[2023-08-16 08:58] LABS: ALBUMIN 2.4 G/DL (3.2-5.2); ALKALINE PHOSPHATASE 63 U/L (46-116); ALT/SGPT 63 U/L (7.0-40); AST/SGOT 47 U/L (<34); BILIRUBIN,TOTAL 1.1 MG/DL (0.3-1.2); BLOOD UREA NITROGEN 13 MG/DL (9-23); CALCIUM LEVEL 7.5 MG/DL (8.3-10.6); CARBON DIOXIDE LEVEL 20 MMOL/L (20-31); CHLORIDE LEVEL 105 MMOL/L (98-107); CREATININE FOR GFR 0.75 MG/DL (0.55-1.30); GLOMERULAR FILTRATION RATE > 60.0 (>39); GLUCOSE, FASTING 125 MG/DL (74-106); MAGNESIUM LEVEL 2.2 MG/DL (1.8-2.4); PHOSPHORUS LEVEL 2.4 MG/DL (2.4-5.1); SODIUM LEVEL 130 MMOL/L (136-145); TOTAL PROTEIN 5.4 G/DL (5.7-8.2)
[2023-08-16] MEDS: cefTRIAXone SOD 2 GM in D5W MINI-BAG PLUS 50 ML IV SCH (13:06)
[2023-08-16] MEDS: AMIODARONE HCL 360 MG in IV 1 EA IV SCH (16:39)
[2023-08-17] VITALS (33 sets, daily range): BP systolic 121–172; BP diastolic 59–77; TEMP 99–99.7; O2SAT 95–100
[2023-08-17] MEDS: diphenhydrAMINE 50MG/ML VIAL IV STA (01:28)
[2023-08-17 04:04] LABS: BASO % 0.1 % (0.0-1.0); HEMATOCRIT 34.2 % (36.0-47.0); HEMOGLOBIN 11.8 g/dl (12.0-15.5); LYMPH # 0.6 10^3/uL (1.5-5.0); LYMPH % 2.9 % (24.0-44.0); MEAN CORPUSCULAR HEMOGLOBIN 28.9 pg (27.0-33.0); MEAN CORPUSCULAR HGB CONC 34.5 g/dl (32.0-36.5); MEAN CORPUSCULAR VOLUME 83.8 fl (80.0-96.0); MONO # 1.3 10^3/uL (0.0-0.8); MONO % 6.2 % (2.0-8.0); RED BLOOD COUNT 4.08 10^6/uL (4.00-5.40)
[2023-08-17 04:10] LABS: PLATELET COUNT, AUTOMATED 285 10^3/uL (150-450)
[2023-08-17 04:16] LABS: INR 1.58; PROTHROMBIN TIME 18.3 SECONDS (12.5-14.5)
[2023-08-17 04:34] LABS: BARBITURATES URINE NEGATIVE (NEGATIVE)
[2023-08-17 04:35] LABS: AMPHETAMINES LEVEL URINE NEGATIVE (NEGATIVE); BENZODIAZEPINES URINE POSITIVE (NEGATIVE); CANNABINOIDS URINE NEGATIVE (NEGATIVE); COCAINE METABOLITE URINE NEGATIVE (NEGATIVE); METHADONE URINE NEGATIVE (NEGATIVE); OPIATES URINE NEGATIVE (NEGATIVE); PHENCYCLIDINE URINE NEGATIVE (NEGATIVE)
[2023-08-17 04:36] LABS: CK-MB VALUE MASS 1.5 NG/ML (<3.6)
[2023-08-17 04:38] LABS: MB/CK RELATIVE INDEX 1.5 (< OR =4)
[2023-08-17 04:47] LABS: ALBUMIN 2.3 G/DL (3.2-5.2); BILIRUBIN,TOTAL 0.8 MG/DL (0.3-1.2); CALCIUM LEVEL 7.7 MG/DL (8.3-10.6); CREATININE FOR GFR 1.1 MG/DL (0.55-1.30); GLOMERULAR FILTRATION RATE 51.4 (>39); TOTAL PROTEIN 5.5 G/DL (5.7-8.2)
[2023-08-17 05:56] LABS: ABG BASE EXCESS -5.4 (-2.0-2.0); ABG O2 SATURATION 98.5 % (95.0-99.0); ABG PARTIAL PRESSURE CO2 24.9 mmHg (35.0-45.0); ABG PARTIAL PRESSURE O2 134.5 mmHg (75.0-100.0); ABG STANDARD HCO3 20.1 MMOL/L. (22.0-26.0); ABG TOTAL CO2 17.8 MMOL/L (23.0-31.0); ABG pH (ARTERIAL) 7.452 UNITS (7.350-7.450)
[2023-08-17] MEDS ORDERED: methylPREDNISolone 40MG 1ML VIAL IV SCH (09:00)
[2023-08-17] MEDS: AMIODARONE 100MG TABLET (PACERONE) PO SCH (09:34)
[2023-08-17] MEDS: LACRILUBE (AKWA TEARS) OPHTH OINT 3.5GM OU PRN (09:35)
[2023-08-17] MEDS: FUROSEMIDE 40MG/4ML VIAL IV SCH (13:38)
[2023-08-17] MEDS: ONDANSETRON 4MG 2ML VIAL IV ONE (22:36)
[2023-08-18] VITALS (32 sets, daily range): BP systolic 147–180; BP diastolic 66–77; TEMP 99.2–99.9; O2SAT 93–97
[2023-08-18 04:38] LABS: BASO % 0.1 % (0.0-1.0); HEMATOCRIT 34.2 % (36.0-47.0); HEMOGLOBIN 11.8 g/dl (12.0-15.5); LYMPH # 0.7 10^3/uL (1.5-5.0); LYMPH % 4.2 % (24.0-44.0); MEAN CORPUSCULAR HGB CONC 34.5 g/dl (32.0-36.5); MONO # 1.2 10^3/uL (0.0-0.8); MONO % 6.9 % (2.0-8.0); NEUTROPHILS # 14.8 10^3/uL (1.5-8.5); NEUTROPHILS % 87.5 % (36.0-66.0); PLATELET COUNT, AUTOMATED 288 10^3/uL (150-450); RED BLOOD COUNT 4.07 10^6/uL (4.00-5.40); WHITE BLOOD COUNT 16.9 10^3/uL (4.0-10.0)
[2023-08-18 04:49] LABS: AMPHETAMINES LEVEL URINE NEGATIVE (NEGATIVE); BARBITURATES URINE NEGATIVE (NEGATIVE); CANNABINOIDS URINE NEGATIVE (NEGATIVE); COCAINE METABOLITE URINE NEGATIVE (NEGATIVE); METHADONE URINE NEGATIVE (NEGATIVE); OPIATES URINE NEGATIVE (NEGATIVE); PHENCYCLIDINE URINE NEGATIVE (NEGATIVE)
[2023-08-18 04:53] LABS: BENZODIAZEPINES URINE POSITIVE (NEGATIVE)
[2023-08-18 04:54] LABS: INR 1.65
[2023-08-18 05:01] LABS: ALBUMIN 2.6 G/DL (3.2-5.2); BILIRUBIN,TOTAL 1.2 MG/DL (0.3-1.2); CALCIUM LEVEL 7.9 MG/DL (8.3-10.6); CREATININE FOR GFR 1.26 MG/DL (0.55-1.30); POTASSIUM SERUM 3.8 MMOL/L (3.5-5.1); TOTAL PROTEIN 5.9 G/DL (5.7-8.2)
[2023-08-18 05:55] LABS: ABG BASE EXCESS -3.8 (-2.0-2.0); ABG HCO3 19.3 MMOL/L (22.0-26.0); ABG O2 SATURATION 96.2 % (95.0-99.0); ABG PARTIAL PRESSURE CO2 29.4 mmHg (35.0-45.0); ABG PARTIAL PRESSURE O2 82.6 mmHg (75.0-100.0); ABG STANDARD HCO3 21.3 MMOL/L. (22.0-26.0); ABG TOTAL CO2 20.2 MMOL/L (23.0-31.0); ABG pH (ARTERIAL) 7.435 UNITS (7.350-7.450)
[2023-08-18] MEDS: ASPIRIN 325 MG TAB PO SCH (09:52)
[2023-08-18] MEDS: OMEGA-3 1000MG CAPSULE PO SCH (20:30)
[2023-08-19] VITALS (24 sets, daily range): BP systolic 132–192; BP diastolic 60–99; TEMP 99.3–100.4; O2SAT 93–100
[2023-08-19 04:44] LABS: BASO % 0.1 % (0.0-1.0); HEMATOCRIT 32.7 % (36.0-47.0); HEMOGLOBIN 11.3 g/dl (12.0-15.5); LYMPH # 0.7 10^3/uL (1.5-5.0); LYMPH % 4.5 % (24.0-44.0); MEAN CORPUSCULAR HEMOGLOBIN 28.8 pg (27.0-33.0); MEAN CORPUSCULAR HGB CONC 34.6 g/dl (32.0-36.5); MEAN CORPUSCULAR VOLUME 83.2 fl (80.0-96.0); MONO # 0.9 10^3/uL (0.0-0.8); MONO % 6.1 % (2.0-8.0); NEUTROPHILS # 13.3 10^3/uL (1.5-8.5); NEUTROPHILS % 87.7 % (36.0-66.0); PLATELET COUNT, AUTOMATED 275 10^3/uL (150-450); RED BLOOD COUNT 3.93 10^6/uL (4.00-5.40); WHITE BLOOD COUNT 15.1 10^3/uL (4.0-10.0)
[2023-08-19 04:56] LABS: INR 1.8; PROTHROMBIN TIME 20.3 SECONDS (12.5-14.5)
[2023-08-19 05:15] LABS: ALBUMIN 2.6 G/DL (3.2-5.2); BILIRUBIN,TOTAL 1.4 MG/DL (0.3-1.2); CALCIUM LEVEL 8.1 MG/DL (8.3-10.6); CREATININE FOR GFR 1.23 MG/DL (0.55-1.30); GLOMERULAR FILTRATION RATE 45.2 (>39); PHOSPHORUS LEVEL 3.8 MG/DL (2.4-5.1); POTASSIUM SERUM 3.6 MMOL/L (3.5-5.1); TOTAL PROTEIN 5.8 G/DL (5.7-8.2)
[2023-08-19] MEDS: hydrALAZINE 20MG/ML 1ML VIAL IV PRN (09:38)
[2023-08-19] MEDS ORDERED: LORazepam 2 MG/ML 1ML VIAL IV PRN (18:20)
[2023-08-19] MEDS ORDERED: ONDANSETRON 4MG 2ML VIAL IV PRN (18:20)
[2023-08-19] MEDS: SCOPOLAMINE 1MG TRANSDERMAL PATCH TOP PRN (18:56)
[2023-08-19] MEDS: MORPHINE 2 MG/ML 1ML VIAL IV PRN (18:57)
[2023-08-20] MEDS: MORPHINE 10MG/0.5ML ORAL CONCENTRATE SOLUTION U/D SL PRN (13:21)
[2023-08-20] MEDS: LORazepam 1 MG TAB PO PRN (18:19)
[2023-08-21] MEDS: LORazepam 2 MG/ML 1ML VIAL IV PRN (04:38)
[2023-08-21] MEDS: LORazepam 1 MG TAB PO PRN (09:54)
== END 2023-08-22 11:33 | disposition expired | DRG 871 ==
LOC: M ED 17:04 → M ED INP 19:24 → ENRESERV 19:37 → M ICU 20:01 → M MSPAV 08-19 20:44
PROVIDERS: ADMIT Internal Medicine; ATTEND Family Medicine
PROC: 5A1945Z Respiratory Ventilation, 24-96 Consecutive Hours (ICD-10-PCS; principal; 2023-08-14)
PROC: B246ZZZ Ultrasonography of Right and Left Heart (ICD-10-PCS; 2023-08-17)
DX: A41.89 Other specified sepsis (principal); R65.21 Severe sepsis with septic shock; R40.20 Unspecified coma; J10.00 Influenza due to other identified influenza virus with unspecified type of pneumonia; R40.3 Persistent vegetative state; G93.1 Anoxic brain damage, not elsewhere classified; I46.2 Cardiac arrest due to underlying cardiac condition; Z66 Do not resuscitate; E83.51 Hypocalcemia; R57.0 Cardiogenic shock; E87.6 Hypokalemia; E83.42 Hypomagnesemia; I49.01 Ventricular fibrillation; I10 Essential (primary) hypertension; Z79.01 Long term (current) use of anticoagulants; Z79.899 Other long term (current) drug therapy; Z88.1 Allergy status to other antibiotic agents; Z88.0 Allergy status to penicillin; Z88.5 Allergy status to narcotic agent; Z88.8 Allergy status to other drugs, medicaments and biological substances; Z95.2 Presence of prosthetic heart valve; Z95.0 Presence of cardiac pacemaker